=== PATIENT | female | born 2000 | race Caucasian/White ===

== ENCOUNTER 2021-10-16 00:58 | Observation (INO) | payer MEDICAID, OTHER ==
[~2021-10-16] VITALS: Ht 162.6 cm; Wt 68.0 kg
[2021-10-16] MEDS ORDERED: PNV1TABL50 PO (02:42)
[2021-10-16] MEDS ORDERED: FERR325T6 PO (02:42)
[2021-10-16] MEDS ORDERED: VITAMIN D (02:42)
[2021-10-16] MEDS ORDERED: FOLIC ACID (02:42)
== END 2021-10-16 03:10 | disposition home or self-care (01) ==
LOC: 8 EST LDRP 00:58
PROVIDERS: ADMIT Obstetrics & Gynecology; ATTEND Obstetrics & Gynecology
DX: O62.9 Abnormality of forces of labor, unspecified (principal); Z3A.33 33 weeks gestation of pregnancy
CPT/HCPCS: 59025; 76805; 76818; 99281; G0378

== ENCOUNTER 2021-12-03 13:24 | Inpatient (IN) | payer OTHER ==
[~2021-12-03] VITALS: Ht 157.5 cm; Wt 67.1 kg
[~2021-12-03 13:24] MED LIST: FERR325T6 PO; FOLIC ACID; PNV1TABL50 PO; VITAMIN D
[2021-12-03] MEDS ORDERED: CARBOPROST TROMETHAMINE 250 MCG/ML AMPUL IM NR (17:00)
[2021-12-03] MEDS ORDERED: METHYLERGONOVINE MALEATE 0.2 MG/ML IM NR (17:00)
[2021-12-03] MEDS ORDERED: DEXT 5%/LR + PITOCIN 20UNITS/L 1,000 ML IV ONE (17:00)
[2021-12-03] MEDS ORDERED: RHO(D) IMMUNE GLOBULIN 300 MCG/SYR IM PRN (17:00)
[2021-12-03] MEDS ORDERED: BUTORPHANOL TARTRATE 2 MG/ML VIAL IV PRN (17:00)
[2021-12-03] MEDS: OXYTOCIN 30 UNITS/500ML NS PMX 500 ML IV SCH (17:55)
[2021-12-03] MEDS: LACTATED RINGERS 1,000 ML IV SCH ×2 (17:58→23:47)
[2021-12-03 18:24] LABS: BASOPHILS % 0.2 % (0.0-2.0); EOSINOPHILS % 0.7 % (0.0-5.0); HEMATOCRIT. 38.8 % (36.0-48.0); HEMOGLOBIN. 13.1 g/dL (12.0-16.0); LYMPHOCYTES % 14.5 % (20.0-50.0); MEAN CORPUSCULAR HEMOGLOBIN 27.7 pg (28.0-32.0); MEAN CORPUSCULAR VOLUME 82.1 fL (81.0-99.0); MEAN PLATELET VOLUME 10.7 fl (7.4-10.4); MONOCYTES % 4.3 % (2.0-8.0); NEUTROPHILS % 80.3 % (40.0-76.0); PLATELET 195 x1000/uL (130-400); RED BLOOD CELL COUNT 4.73 mill/uL (4.2-5.4); RED CELL DISTRIBUTION WIDTH 14.2 % (11.6-14.6)
[2021-12-03 18:33] LABS: *AMPHETAMINES SCREEN URINE NEGATIVE (NEGATIVE); *BARBITURATES SCREEN URINE NEGATIVE (NEGATIVE); *BENZODIAZEPINES SCREEN URINE NEGATIVE (NEGATIVE); *COCAINE SCREEN URINE NEGATIVE (NEGATIVE); CANNABINOID URINE SCREEN NEGATIVE (NEGATIVE); METHADONE URINE SCREEN NEGATIVE (NEGATIVE); OPIATES URINE SCREEN NEGATIVE (NEGATIVE); PHENCYCLIDINE URINE SCREEN NEGATIVE (NEGATIVE)
[2021-12-03 18:35] LABS: INR 0.9; PARTIAL THROMBOPLASTIN TIME 27.7 sec (23.4-31.0); PROTHROMBIN TIME 9.7 sec (9.6-11.0)
[2021-12-03 19:02] LABS: HEPATITIS B SURFACE ANTIGEN NEGATIVE
[2021-12-04] MEDS ORDERED: FENTANYL CITRATE/PF 50MCG/ML 2ML VIAL ONE ×2 (03:33→09:28)
[2021-12-04] MEDS ORDERED: ROPIVACAINE HCL/PF EPIDURAL 200 ML EPI ONE (03:33)
[2021-12-04] MEDS ORDERED: ROPIVACAINE HCL/PF EPIDURAL 200 ML EPI SCH (06:30)
[2021-12-04] MEDS ORDERED: ROPIVACAINE HCL/PF EPIDURAL 200 ML EP SCH (06:30)
[2021-12-04] MEDS: LACTATED RINGERS 1,000 ML IV SCH (07:57)
[2021-12-04] MEDS ORDERED: BUPIVACAINE HCL/PF 0.25% (2.5MG/ML) 10ML ONE (09:27)
[2021-12-04] MEDS ORDERED: LIDOCAINE HCL 1% 20ML VIAL (Pyxis) INJ INFIL SCH (13:15)
[2021-12-04] MEDS: OXYTOCIN 30 UNITS/500ML NS PMX 500 ML IV SCH (13:55)
[2021-12-04] MEDS ORDERED: RHO(D) IMMUNE GLOBULIN 300 MCG/SYR IM PRN (14:30)
[2021-12-04] MEDS ORDERED: IBUPROFEN 400MG TABLET PO PRN (14:30)
[2021-12-04] MEDS ORDERED: OXYTOCIN 30 UNITS/500ML NS PMX 500 ML IV SCH (14:30)
[2021-12-04] MEDS ORDERED: LANOLIN OINT 7GM TUBE TOP PRN (14:30)
[2021-12-04] MEDS: IBUPROFEN 800MG TABLET PO PRN ×2 (14:44→19:50)
[2021-12-04] MEDS ORDERED: LIDOCAINE HCL 2%/EPINEPHRINE 1:100,000 20 ML VIAL INFIL ONE (15:00)
[2021-12-04 15:30] VITALS: BP 116/63
[2021-12-04 16:30] VITALS: BP 114/62
[2021-12-04 20:00] VITALS: BP 112/61
[2021-12-05] MEDS: IBUPROFEN 800MG TABLET PO PRN ×2 (04:10→21:28)
[2021-12-05 07:32] LABS: BASOPHILS % 0.2 % (0.0-2.0); EOSINOPHILS % 0.7 % (0.0-5.0); HEMATOCRIT. 24.6 % (36.0-48.0); HEMOGLOBIN. 8.2 g/dL (12.0-16.0); MEAN CORPUSCULAR HEMOGLOBIN 27.8 pg (28.0-32.0); MEAN PLATELET VOLUME 10.6 fl (7.4-10.4); MONOCYTES % 4.8 % (2.0-8.0); NEUTROPHILS % 76.3 % (40.0-76.0); PLATELET 147 x1000/uL (130-400); RED BLOOD CELL COUNT 2.93 mill/uL (4.2-5.4); RED CELL DISTRIBUTION WIDTH 14.3 % (11.6-14.6)
[2021-12-05 08:00] VITALS: BP 105/47
[2021-12-05] MEDS: PRENATAL VIT/FE FUMARATE/FA TABLET PO SCH (09:11)
[2021-12-05 16:00] VITALS: BP 113/63
[2021-12-05 20:00] VITALS: BP 112/58
[2021-12-06 04:30] VITALS: BP 106/59
[2021-12-06] MEDS: PRENATAL VIT/FE FUMARATE/FA TABLET PO SCH (09:00)
[2021-12-06 10:00] VITALS: BP 110/64
[2021-12-06] MEDS ORDERED: IBUP-2030 PO (12:30)
== END 2021-12-06 15:20 | disposition home or self-care (01) | DRG 560 ==
LOC: 8 EST LDRP 13:24 → OBSVTOIN 13:24 → 8EST 12-04 15:33
PROVIDERS: ADMIT Obstetrics & Gynecology; ATTEND Obstetrics & Gynecology
PROC: 10E0XZZ Delivery of Products of Conception, External Approach (ICD-10-PCS; principal; 2021-12-04)
PROC: 0W8NXZZ Division of Female Perineum, External Approach (ICD-10-PCS; 2021-12-04)
PROC: 3E0S3BZ Introduction of Anesthetic Agent into Epidural Space, Percutaneous Approach (ICD-10-PCS; 2021-12-04)
PROC: 00HU33Z Insertion of Infusion Device into Spinal Canal, Percutaneous Approach (ICD-10-PCS; 2021-12-04)
DX: O48.0 Post-term pregnancy (principal); Z37.0 Single live birth; O41.03X0 Oligohydramnios, third trimester, not applicable or unspecified; D62 Acute posthemorrhagic anemia; O90.81 Anemia of the puerperium; Z20.822 Contact with and (suspected) exposure to COVID-19; Z3A.40 40 weeks gestation of pregnancy
CPT/HCPCS: 36415; 76805; 76818; 80305; 85025; 86592; 86703; 86762; 86850; 86900; 87340; 87426; 99281; J0595; J2795; J3010; J3490; J7120; J2590